=== PATIENT | male | born 1990 | race Two or more races ===

== ENCOUNTER 2025-02-13 12:40 | Emergency (ER) | payer BC ==
[~2025-02-13] VITALS: Ht 180.3 cm; Wt 95.3 kg
[2025-02-13] MEDS ORDERED: NAPR-1164 PO (14:34)
[2025-02-13] MEDS ORDERED: KETOROLAC TROMETHAMINE 15 MG/ML VIAL ONE (14:39)
[2025-02-13] MEDS ORDERED: dexaMETHasone SOD PHOSPHATE 1 ML ONE (14:39)
[2025-02-13] MEDS: dexaMETHasone SOD PHOSPHATE 10 MG/ML VIAL IM ONE (14:48)
[2025-02-13] MEDS: KETOROLAC TROMETHAMINE 15 MG/ML VIAL IM ONE (14:48)
[2025-02-13 14:49] VITALS: BP 145/82; TEMP 98.1; O2SAT 99
== END 2025-02-13 14:50 | disposition home or self-care (01) ==
LOC: ER 12:46
DX: M54.50 Low back pain, unspecified (principal); Z98.1 Arthrodesis status
CPT/HCPCS: 99284; 96372; J1885; J1100